=== PATIENT | female | born 1985 | race African-American/Black ===

== ENCOUNTER 2016-07-15 20:19 | Inpatient (IN) | payer OTHER ==
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
[2016-07-15] MEDS ORDERED: ALBUTEROL SO4 6.7 GM HFA INHALER IH PRN (21:33)
[2016-07-15] MEDS ORDERED: chlordiazePOXIDE HCL 25 MG CAPSULE PO PRN (21:34)
[2016-07-15] MEDS ORDERED: IBUPROFEN 400 MG TABLET (FP) PO PRN (21:34)
[2016-07-15] MEDS ORDERED: MAGNESIUM CITRATE 300 ML BOTTLE PO PRN (21:34)
[2016-07-15] MEDS ORDERED: MENTHOL/PHENOL 1 EACH UD MM PRN (21:34)
[2016-07-15] MEDS ORDERED: ACETAMINOPHEN 325 MG TABLET (FP) PO PRN (21:34)
[2016-07-15] MEDS ORDERED: diphenhydrAMINE HCL 50 MG CAPSULE PO PRN (21:34)
[2016-07-15] MEDS ORDERED: guaiFENesin/D-METHORPHAN HB 10 ML UNIT-DOSE CUPS PO PRN (21:34)
[2016-07-15] MEDS ORDERED: hydrOXYzine PAMOATE 50 MG CAPSULE (FP) PO PRN (21:34)
[2016-07-15] MEDS ORDERED: P-EPHED 60MG/TRIPROLIDI 2.5MG TABLET PO PRN (21:34)
[2016-07-15] MEDS ORDERED: METHADONE HCL 10 MG TABLET (FOR DETOX USE ONLY) PO ONE ×2 (21:34→23:00)
[2016-07-15] MEDS ORDERED: MAGNESIUM HYDROX 2400MG/30ML ORAL SUSPENSION 30 ML CUP PO PRN (21:34)
[2016-07-15] MEDS ORDERED: LOPERAMIDE HCL 2 MG CAPSULE PO PRN (21:34)
[2016-07-15] MEDS ORDERED: MAG HYDROX/AL HYDROX/SIMETH 30 ML UNIT-DOSE CUP PO PRN (21:34)
[2016-07-15] MEDS ORDERED: chlordiazePOXIDE HCL 25 MG CAPSULE PO ONE (21:34)
[2016-07-15 21:45] VITALS: BMI 31.5
[2016-07-15] MEDS ORDERED: HYDROCORTISONE 1% TOPICAL CREAM 30 GM TUBE TP ONE (21:53)
[2016-07-15] MEDS ORDERED: HYDROCORTISONE 1% TOPICAL CREAM 30 GM TUBE TP PRN (21:53)
[2016-07-15] MEDS ORDERED: THIAMINE HCL 100 MG TABLET (FP) PO SCH (22:00)
[2016-07-15] MEDS ORDERED: METHADONE HCL 10 MG TABLET (FOR DETOX USE ONLY) ONE (23:50)
[2016-07-15] MEDS: chlordiazePOXIDE HCL 25 MG CAPSULE PO SCH (23:52)
[2016-07-16] MEDS: chlordiazePOXIDE HCL 25 MG CAPSULE PO SCH (05:56)
--- NOTE | 2016-07-16 09:09 | DS ---
[facility] Detox Discharge Summary Admission Date: 07/15/16 Discharge Date: 07/16/16 - History Present History: Alcohol Dependence, Cocaine Dependence, Opioid Dependence - Physical Exam Results Vital Signs: Vital Signs Temperature 97.9 F 07/16/16 06:00 Pulse Rate 72 07/16/16 06:00 Respiratory Rate 18 07/16/16 06:00 Blood Pressure 107/61 07/16/16 06:00 O2 Sat by Pulse Oximetry (%) - Treatment Hospital Course: Detox Protocol Followed - Medication Discharge Medications: Ambulatory Orders Quetiapine Fumarate [Seroquel -] 200 mg PO HS 10/19/15 Quetiapine Fumarate [Seroquel] 100 tab PO HS #30 tablet 10/20/15 Mirtazapine [Remeron -] 30 mg PO HS #30 tablet 07/16/16 Quetiapine Fumarate [Seroquel -] 200 mg PO HS #30 tab 07/16/16 - Diagnosis (1) Alcohol dependence with uncomplicated withdrawal Current Visit: Yes Status: Chronic (2) Asthma Current Visit: Yes Status: Chronic Qualifiers: Asthma severity: mild intermittent Asthma complication type: uncomplicated Qualified Code(s): J45.20 - Mild intermittent asthma, uncomplicated (3) Cocaine dependence Current Visit: Yes Status: Chronic Qualifiers: Complication of substance-induced condition: with unspecified complication (4) Opioid dependence with withdrawal Current Visit: Yes Status: Chronic (5) Crohn disease Current Visit: No Status: Inactive Qualifiers: Digestive disease complication type: unspecified complication (6) Nicotine dependence Current Visit: Yes Status: Chronic Qualifiers: Nicotine product type: cigarettes Substance use status: uncomplicated Qualified Code(s): F17.210 - Nicotine dependence, cigarettes, uncomplicated (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
--- NOTE | 2016-07-16 09:42 | CONSULT ---
[facility] Psychiatric Consult - Data Date of interview: 07/16/16 Admission source: [facility] Identifying data: This is 30 years old male with psychiatric hospitalization history intoxicated with : Alcohol, Cocaine, Opioids amd Nicotine Substance Abuse History: - Smoking Cessation. Smoking history: Current every day smoker. Have you smoked in the past 12 months: Yes. Aproximately how many cigarettes per day: 7. Hx Chewing Tobacco Use: No. Initiated information on smoking cessation: Yes. 'Breaking Loose' booklet given: 07/15/16. - Substance & Tx. History. Hx Alcohol Use: Yes. Hx Substance Use: Yes. Substance Use Type : Alcohol, Cocaine, Heroin. Hx Substance Use Treatment: Yes (DETOX AND REHAB ) . - Substances Abused. Alcohol. Route: Oral. Frequency: Daily. Amount used: 5-6 C. OF LIQUOR. Age of first use: 21. Date of Last Use: 07/15/16. Heroin. Route: Inhalation. Frequency: Daily. Amount used: 8-9 BAGS. Age of first use: 29. Date of Last Use: 07/15/16. Cocaine. Route: Smoking. Frequency: Daily. Amount used: $100. Age of first use: 30. Date of Last Use: Medical History: Asth,a. Crohn Desease Psychiatric History: Patient reports to carry nBipoloar Disorder with most recent psychiatric admission on more then 10 years ago, reports being stable on : Seroquel 200mg po qhs. Remeron 30mg po qhs Physical/Sexual Abuse/Trauma History: Denies Additional Comment: Seroquel 200mg po qhs. Remeron 30mg po qhs Mental Status Exam - Mental Status Exam Alert and Oriented to: Person Cognitive Function: Fair Patient Appearance: Unkempt Mood: Sad Affect: Flat Patient Behavior: Sedated Speech Pattern: Delayed Voice Loudness: Mildly Soft/Quiet Thought Process: Circumstantial Thought Disorder: Being Controlled Hallucinations: Denies Suicidal Ideation: Denies Homicidal Ideation: Denies Insight/Judgement: Fair Sleep: Difficulty falling asleep Appetite: Fair Muscle strength/Tone: Mild Hypertonicity Gait/Station: Normal Additional Comments: Seroquel 200mg po qhs. Remeron 30mg po qhs Psychiatric Findings - Problem List ([place] 1, 2,3) (1) Alcohol dependence with uncomplicated withdrawal Current Visit: Yes Status: Chronic (2) Cocaine dependence Current Visit: Yes Status: Chronic Qualifiers: Complication of substance-induced condition: with unspecified complication (3) Nicotine dependence Current Visit: Yes Status: Chronic Qualifiers: Nicotine product type: cigarettes Substance use status: uncomplicated Qualified Code(s): F17.210 - Nicotine dependence, cigarettes, uncomplicated (4) Opioid dependence with withdrawal Current Visit: Yes Status: Chronic (5) Bipolar disorder Current Visit: No Status: Suspected Qualifiers: Most recent bipolar episode type: most recent episode unspecified type - Initial Treatment Plan Initial Treatment Plan: Seroquel 200mg po qhs. Remeron 30mg po qhs
[2016-07-16 09:59] LABS: MCH 29.5 pg (25.7-33.7); MCHC 32.6 g/dl (32.0-36.0); MEAN CELL VOLUME 90.5 fl (80-96); MEAN PLT VOLUME 8.3 fl (7.5-11.1); PLATELET COUNT 205 K/MM3 (134-434); RDW 13.8 % (11.6-15.6); WHITE BLOOD COUNT 5.4 K/mm3 (4.0-10.0)
[2016-07-16] MEDS ORDERED: PRENATAL VITAMINS W/ FOLIC ACID TABLET (FP) PO SCH (10:00)
[2016-07-16] MEDS ORDERED: METHADONE HCL 10 MG TABLET (FOR DETOX USE ONLY) PO SCH (10:00)
[2016-07-16 10:10] VITALS: BP 113/68; PULSE 90; TEMP 95.5
[2016-07-16 10:27] LABS: ALBUMIN 3.4 g/dl (3.4-5.0); ANION GAP 8 (8-16); BILIRUBIN,TOTAL 0.4 mg/dL (0.2-1.0); CALCIUM 8.7 mg/dL (8.5-10.1); CO2 32 mmol/L (21-32); CREATININE 0.8 mg/dL (0.55-1.02); GLUCOSE,RANDOM 86 mg/dL (74-106); SGOT/AST 15 U/L (15-37); SGPT/ALT 15 U/L (12-78); TOT PROT 6.6 g/dl (6.4-8.2)
[2016-07-16 10:28] LABS: ALK PHOS 66 U/L (45-117)
[2016-07-16 11:47] LABS: HIV 1 AGp24 NEGATIVE
[2016-07-16 11:49] LABS: HIV 1 & 2 AB NEGATIVE
[2016-07-16] MEDS ORDERED: QUEtiapine FUMARATE 200 MG TABLET PO SCH (22:00)
[2016-07-16] MEDS ORDERED: MIRTAZAPINE 30 MG TABLET (FP) PO SCH (22:00)
[2016-07-16] MEDS ORDERED: chlordiazePOXIDE HCL 25 MG CAPSULE PO SCH (23:00)
[2016-07-17] MEDS ORDERED: METHADONE HCL 5 MG TABLET (FOR DETOX USE ONLY) PO SCH (10:00)
--- NOTE | 2016-07-17 16:57 | EKG ---
Test Reason : Blood Pressure : / mmHG Vent. Rate : 067 BPM Atrial Rate : 067 BPM P-R Int : 142 ms QRS Dur : 088 ms QT Int : 446 ms P-R-T Axes : 055 069 047 degrees QTc Int : 471 ms NORMAL SINUS RHYTHM NORMAL ECG WHEN COMPARED WITH ECG OF 03-JAN-2003 20:20, VENT. RATE HAS DECREASED BY 33 BPM T WAVE VARIATION Confirmed by MARK BIRD, RACHANA ([id number]) on 07/17/2016 4:56:55 PM Referred By: Confirmed By:RACHANA FLORES MD
[2016-07-17] MEDS ORDERED: chlordiazePOXIDE 5 MG CAPSULE PO SCH (23:00)
[2016-07-18] MEDS ORDERED: chlordiazePOXIDE HCL 10 MG CAPSULE PO SCH (23:00)
[2016-07-19] MEDS ORDERED: METHADONE HCL 10 MG TABLET (FOR DETOX USE ONLY) PO SCH (10:00)
[2016-07-20] MEDS ORDERED: METHADONE HCL 5 MG TABLET (FOR DETOX USE ONLY) PO SCH (06:00)
== END 2016-07-16 08:35 | disposition home or self-care (01) | DRG 773 ==
LOC: YASAS 20:19 → Y6N 21:27
PROVIDERS: ADMIT Internal Medicine Addiction Medicine; ATTEND Internal Medicine Addiction Medicine
PROC: HZ2ZZZZ Detoxification Services for Substance Abuse Treatment (ICD-10-PCS; principal; 2016-07-16)
DX: F11.23 Opioid dependence with withdrawal (principal); F10.230 Alcohol dependence with withdrawal, uncomplicated; F14.20 Cocaine dependence, uncomplicated; F17.210 Nicotine dependence, cigarettes, uncomplicated; F31.9 Bipolar disorder, unspecified; J45.20 Mild intermittent asthma, uncomplicated; K50.90 Crohn's disease, unspecified, without complications; G56.21 Lesion of ulnar nerve, right upper limb; F91.8 Other conduct disorders
CPT/HCPCS: 36415; 80053; 85027; 86593; 87389; 93005; 93010

== ENCOUNTER 2020-12-23 19:18 | Inpatient (IN) | payer OTHER ==
[2020-12-23] MEDS ORDERED: cloNIDine HCL 0.1 MG TABLET PO PRN (20:29)
[2020-12-23] MEDS ORDERED: NICOTINE 10 MG CARTRIDGE (INHALER) IH PRN (20:29)
[2020-12-23] MEDS ORDERED: BISMUTH SUBSALICYLATE 524 MG/30 ML PO PRN (20:29)
[2020-12-23] MEDS ORDERED: NALOXONE HCL 0.4 MG/ML VIAL IM PRN (20:29)
[2020-12-23] MEDS ORDERED: MAGNESIUM CITRATE 300 ML BOTTLE PO PRN (20:29)
[2020-12-23] MEDS ORDERED: MAG HYDROX/AL HYDROX/SIMETH 30 ML UNIT-DOSE CUP PO PRN (20:29)
[2020-12-23] MEDS ORDERED: MAGNESIUM HYDROX 2400MG/30ML ORAL SUSPENSION 30 ML CUP PO PRN (20:29)
[2020-12-23] MEDS ORDERED: ACETAMINOPHEN 325 MG TABLET (FP) PO PRN ×2 (20:29)
[2020-12-23] MEDS ORDERED: clonazePAM 0.5 MG ODT TABLETS SL PRN (20:29)
[2020-12-23] MEDS ORDERED: IBUPROFEN 400 MG TABLET (FP) PO PRN (20:29)
[2020-12-23] MEDS ORDERED: MENTHOL/PHENOL 1 EACH UD MM PRN (20:29)
[2020-12-23] MEDS ORDERED: methaDONE HCL 10 MG TABLET (FOR DETOX USE ONLY) PO ONE (20:29)
[2020-12-23 20:55] VITALS: BMI 23.4
[2020-12-23] MEDS ORDERED: QUEtiapine FUMARATE 50 MG TABLET PO ONE (22:00)
[2020-12-23] MEDS: THIAMINE HCL 100 MG TABLET (FP) PO SCH (23:34)
[2020-12-23] MEDS: MELATONIN 5 MG TABLETS PO SCH (23:34)
[2020-12-24 01:25] LABS: SARS COV-2 MOLECULAR Presumptive Positive (Negative)
[2020-12-24] MEDS: PRENATAL VITAMINS W/ FOLIC ACID TABLET (FP) PO SCH (11:22)
[2020-12-24] MEDS: METHOCARBAMOL 500 MG TABLET PO PRN (11:22)
[2020-12-24 13:16] LABS: HEMATOCRIT 34.9 % (32.4-45.2); HEMOGLOBIN 11.8 GM/dL (10.7-15.3); MCH 30.9 pg (25.7-33.7); MEAN PLT VOLUME 8.1 fl (7.5-11.1); PLATELET COUNT 149 10^3/uL (134-434); RBC 3.83 M/mm3 (3.60-5.2); RDW 13.5 % (11.6-15.6); WHITE BLOOD COUNT 2.3 K/mm3 (4.0-10.0)
[2020-12-24 13:22] LABS: ALBUMIN 2.6 g/dl (3.4-5.0); BLOOD UREA NITROGEN 12.9 mg/dL (7-18); CALCIUM 8.2 mg/dL (8.5-10.1)
[2020-12-24 13:25] LABS: CREATININE 0.6 mg/dL (0.55-1.3)
[2020-12-24 13:27] LABS: BILIRUBIN,TOTAL 0.4 mg/dL (0.2-1); TOT PROT 5.7 g/dl (6.4-8.2)
[2020-12-24 14:14] LABS: HIV INTERPRETATION NEGATIVE (NEGATIVE)
[2020-12-24] MEDS ORDERED: QUEtiapine FUMARATE 50 MG TABLET PO SCH (22:00)
[2020-12-24] MEDS: MELATONIN 5 MG TABLETS PO SCH (23:08)
[2020-12-24] MEDS: THIAMINE HCL 100 MG TABLET (FP) PO SCH (23:09)
[2020-12-25] MEDS ORDERED: methaDONE HCL 10 MG TABLET (FOR DETOX USE ONLY) PO ONE (10:00)
[2020-12-25 10:49] VITALS: BP 102/67; PULSE 66; TEMP 97.1
[2020-12-25] MEDS: PRENATAL VITAMINS W/ FOLIC ACID TABLET (FP) PO SCH (10:50)
[2020-12-25] MEDS: METHOCARBAMOL 500 MG TABLET PO PRN (10:51)
[2020-12-25] MEDS ORDERED: CALCIUM CARBONATE 650 MG TABLET PO SCH (22:00)
[2020-12-26 10:06] LABS: SARS-CoV-2 NAA Detected (Not Detected)
[2020-12-27] MEDS ORDERED: methaDONE HCL 10 MG TABLET (FOR DETOX USE ONLY) PO ONE (10:00)
== END 2020-12-25 17:23 | disposition left against medical advice (07) | DRG 770 ==
LOC: YASAS 19:18 → Y3N 20:52
PROVIDERS: ADMIT Allergy & Immunology; ATTEND Allergy & Immunology
PROC: HZ2ZZZZ Detoxification Services for Substance Abuse Treatment (ICD-10-PCS; principal; 2020-12-23)
DX: F11.23 Opioid dependence with withdrawal (principal); F10.230 Alcohol dependence with withdrawal, uncomplicated; F14.20 Cocaine dependence, uncomplicated; F12.20 Cannabis dependence, uncomplicated; F17.210 Nicotine dependence, cigarettes, uncomplicated; F31.9 Bipolar disorder, unspecified; F19.282 Other psychoactive substance dependence with psychoactive substance-induced sleep disorder; F19.24 Other psychoactive substance dependence with psychoactive substance-induced mood disorder; U07.1 COVID-19; D72.819 Decreased white blood cell count, unspecified; E83.51 Hypocalcemia; E46 Unspecified protein-calorie malnutrition; Z68.23 Body mass index [BMI] 23.0-23.9, adult; R73.9 Hyperglycemia, unspecified; Z56.0 Unemployment, unspecified; Z59.0 Homelessness
CPT/HCPCS: 36415; 80053; 85027; 86780; 87389; 93005; 93010; C9803; U0003; U0005

== ENCOUNTER 2023-01-28 18:57 | Inpatient (IN) | payer OTHER ==
[2023-01-28 19:43] VITALS: BMI 20.9
[2023-01-28] MEDS ORDERED: BENZOCAINE/MENTHOL (CHLORASEPTIC ) LOZENGE MM PRN (20:26)
[2023-01-28] MEDS ORDERED: IBUPROFEN 600 MG TABLET (FP) PO PRN (20:26)
[2023-01-28] MEDS ORDERED: NALOXONE HCL 0.4 MG/ML VIAL IM PRN (20:26)
[2023-01-28] MEDS ORDERED: POLYETHYLENE GLYCOL (HEALTHYLAX) 3350 17 GM PACKET PO PRN (20:26)
[2023-01-28] MEDS ORDERED: ONDANSETRON *ODT* 4 MG TABLET SL PRN (20:26)
[2023-01-28] MEDS ORDERED: BISMUTH SUBSALICYLATE 524 MG/30 ML PO PRN (20:26)
[2023-01-28] MEDS ORDERED: DICYCLOMINE HCL 10 MG CAPSULE PO PRN (20:26)
[2023-01-28] MEDS ORDERED: BENZONATATE 200 MG CAPSULE PO PRN (20:26)
[2023-01-28] MEDS ORDERED: MAG HYDROX/AL HYDROX/SIMETH 30 ML UNIT-DOSE CUP PO PRN (20:26)
[2023-01-28] MEDS ORDERED: IBUPROFEN 400 MG TABLET (FP) PO PRN (20:26)
[2023-01-28] MEDS ORDERED: MAGNESIUM HYDROX 2400MG/30ML ORAL SUSPENSION 30 ML CUP PO PRN (20:26)
[2023-01-28] MEDS ORDERED: NICOTINE POLACRILEX 2 MG GUM BUC PRN (20:26)
[2023-01-28] MEDS ORDERED: guaiFENesin 600 MG TABLET.ER (FP) PO PRN (20:26)
[2023-01-28] MEDS ORDERED: ACETAMINOPHEN 325 MG TABLET (FP) PO PRN (20:26)
[2023-01-28] MEDS ORDERED: LOPERAMIDE HCL 2 MG CAPSULE PO PRN (20:26)
[2023-01-28] MEDS ORDERED: NALOXONE HCL (KLOXXADO) 8 MG SPRAY NS PRN (20:26)
[2023-01-28] MEDS ORDERED: P-EPHED 60MG/TRIPROLIDI 2.5MG TABLET PO PRN (20:26)
[2023-01-28] MEDS: THIAMINE HCL 100 MG TABLET (FP) PO SCH (21:51)
[2023-01-28] MEDS ORDERED: MELATONIN 5 MG TABLETS PO SCH (22:00)
[2023-01-29] MEDS: METHOCARBAMOL 500 MG TABLET PO PRN (09:46)
[2023-01-29] MEDS: hydrOXYzine PAMOATE 25 MG CAPSULE (FP) PO PRN (09:46)
[2023-01-29] MEDS: PRENATAL VITAMINS W/ FOLIC ACID TABLET (FP) PO SCH (09:48)
[2023-01-29] MEDS ORDERED: methaDONE HCL 10 MG TABLET (FOR DETOX USE ONLY) PO ONE (10:00)
[2023-01-29 12:12] LABS: HEMATOCRIT 41.3 % (32.4-45.2); HEMOGLOBIN 13.7 GM/dL (10.7-15.3); MCH 29.7 pg (25.7-33.7); MEAN CELL VOLUME 89.9 fl (80-96); MEAN PLT VOLUME 7.5 fl (7.5-11.1); PLATELET COUNT 273 10^3/uL (134-434); RDW 13.1 % (11.6-15.6); WHITE BLOOD COUNT 5.4 K/mm3 (4.0-10.0)
[2023-01-29 13:21] LABS: POTASSIUM 4.6 mmol/L (3.5-5.1)
[2023-01-29 13:29] LABS: BILIRUBIN,TOTAL 0.3 mg/dL (0.2-1); TOT PROT 7.2 g/dl (6.4-8.2)
[2023-01-29 13:34] LABS: CALCIUM 8.8 mg/dL (8.5-10.1)
[2023-01-29 13:35] LABS: ALBUMIN 3.4 g/dl (3.4-5.0); BLOOD UREA NITROGEN 18.6 mg/dL (7-18)
[2023-01-29 13:37] LABS: CREATININE 0.6 mg/dL (0.55-1.3)
[2023-01-29] MEDS: THIAMINE HCL 100 MG TABLET (FP) PO SCH (22:55)
[2023-01-29] MEDS: QUEtiapine FUMARATE 100 MG TABLET (FP) PO SCH (22:55)
[2023-01-30] MEDS: METHOCARBAMOL 500 MG TABLET PO PRN (09:07)
[2023-01-30] MEDS: PRENATAL VITAMINS W/ FOLIC ACID TABLET (FP) PO SCH (09:07)
[2023-01-30] MEDS: THIAMINE HCL 100 MG TABLET (FP) PO SCH (21:52)
[2023-01-30] MEDS: QUEtiapine FUMARATE 100 MG TABLET (FP) PO SCH (21:53)
[2023-01-31] MEDS: hydrOXYzine PAMOATE 25 MG CAPSULE (FP) PO PRN (06:23)
[2023-01-31 09:37] VITALS: RESP 16
[2023-01-31] MEDS: METHOCARBAMOL 500 MG TABLET PO PRN (09:37)
[2023-01-31] MEDS: PRENATAL VITAMINS W/ FOLIC ACID TABLET (FP) PO SCH (09:37)
[2023-01-31] MEDS ORDERED: methaDONE HCL 10 MG TABLET (FOR DETOX USE ONLY) PO ONE (10:00)
[2023-01-31 13:35] VITALS: BP 119/76; PULSE 64; TEMP 98
[2023-02-02] MEDS ORDERED: methaDONE HCL 10 MG TABLET (FOR DETOX USE ONLY) PO ONE (10:00)
== END 2023-01-31 16:35 | disposition left against medical advice (07) | DRG 770 ==
LOC: YASAS 18:57 → Y6N 21:32
PROVIDERS: ADMIT Allergy & Immunology; ATTEND Surgery
PROC: HZ2ZZZZ Detoxification Services for Substance Abuse Treatment (ICD-10-PCS; principal; 2023-01-28)
DX: F11.23 Opioid dependence with withdrawal (principal); F14.20 Cocaine dependence, uncomplicated; F12.20 Cannabis dependence, uncomplicated; F17.210 Nicotine dependence, cigarettes, uncomplicated; F20.9 Schizophrenia, unspecified; F19.282 Other psychoactive substance dependence with psychoactive substance-induced sleep disorder; F31.9 Bipolar disorder, unspecified; F19.24 Other psychoactive substance dependence with psychoactive substance-induced mood disorder; Z62.810 Personal history of physical and sexual abuse in childhood; Z87.19 Personal history of other diseases of the digestive system; Z28.310 Unvaccinated for COVID-19; Z28.9 Immunization not carried out for unspecified reason; Z56.0 Unemployment, unspecified; Z59.00 Homelessness unspecified
CPT/HCPCS: 36415; 80053; 80305; 81025; 85027; 86780; 87635